=== PATIENT | female | born 1960 | race Caucasian/White ===

== ENCOUNTER → 2016-10-30 | Outpatient (CLI) | payer OTHER | LOC: FIMAGING 15:41 | PROVIDERS: ATTEND Nurse Practitioner | DX: R51 Headache (principal); S09.90XS Unspecified injury of head, sequela ==

== ENCOUNTER → 2018-06-12 | Outpatient (CLI) | payer MEDICAID | LOC: CIMAGING 14:20 | PROVIDERS: ATTEND Family Medicine | DX: R22.41 Localized swelling, mass and lump, right lower limb (principal) | CPT/HCPCS: 93971-PO ==